=== PATIENT | male | born 1950 | race Hispanic/Latino ===

== ENCOUNTER 2017-12-22 14:52 | Observation (INO) | payer MEDICARE, OTHER ==
[2017-12-22] MEDS: Sodium Chloride 0.9% 1,000 ML IV SCH ×2 (16:33→19:24)
--- NOTE | 2017-12-22 16:57 | ED PDOC ---
Arrival/HPI - General Chief Complaint: Shortness Of Breath Time Seen by Provider: 12/22/17 15:28 Historian: Patient - History of Present Illness Narrative History of Present Illness (Text): 12/22/17 16:54 Patient is a 67 yo male, PMHx of diabetes, pancreatitis, presents to the Emergency Department complaining of three days of upper abdominal pain, gradual onset now constant. Pain radiates to chest. Pain worse after eating oatmeal today "feels like when I had pancreatitis". Patient denies pain with exertion. Denies acute leg pain or swelling. Denies vomiting or bloody stool. Denies shortness of breath or pleuritic discomfort. Time/Duration: < week Symptom Onset: Gradual Past Medical History - Cardiac Hx Hypertension: No - Endocrine/Metabolic Hx Diabetes Mellitus Type 2: Yes - Psychiatric Hx Substance Use: No - Surgical History Hx Appendectomy: Yes Hx Arthroscopy: Yes (L knee) Hx Tonsillectomy: Yes Other/Comment: Lasix sx B/L eyes. Back fusion - Anesthesia Hx Anesthesia: Yes Hx Anesthesia Reactions: No Hx Malignant Hyperthermia: No Family/Social History Family/Social History: Unknown Family HX Smoking Status: Former Smoker Hx Alcohol Use: No Hx Substance Use: No Allergies/Home Meds Allergies/Adverse Reactions: Allergies No Known Allergies Allergy (Verified 12/22/17 15:32) Review of Systems - Review of Systems Constitutional: absent: Fevers Eyes: absent: Vision Changes ENT: absent: Hearing Changes Respiratory: absent: SOB, Cough Cardiovascular: Chest Pain, ADHIKARI. absent: Palpitations, Edema, Calf Pain Gastrointestinal: Abdominal Pain, Nausea, Appetite Changes. absent: Constipation, Diarrhea Genitourinary Male: absent: Dysuria, Frequency, Hematuria Musculoskeletal: absent: Back Pain Skin: absent: Rash Neurological: absent: Headache, Dizziness, Focal Weakness, Gait Changes Hemo/Lymphatic: absent: Easy Bleeding Psychiatric: absent: Depression Physical Exam Vital Signs Reviewed: Yes Vital Signs Temp Pulse Resp BP Pulse Ox 12/22/17 15:33 18 12/22/17 14:53 98.8 F 75 18 139/86 98 Temperature: Afebrile Appearance: Positive for: Uncomfortable Pain Distress: Mild Mental Status: Positive for: Alert and Oriented X 3 - Systems Exam Head: Present: Atraumatic Pupils: Present: PERRL Extroacular Muscles: Present: EOMI Mouth: Present: Dry Pharnyx: No: ERYTHEMA Nose (Internal): Present: Normal Inspection, No Active Bleeding Neck: Present: Normal Range of Motion. No: Meningeal Signs Respiratory/Chest: Present: Clear to Auscultation. No: Respiratory Distress Cardiovascular: Present: Regular Rate and Rhythm, Murmurs Abdomen: Present: Tenderness (moderate epigastric pain, no rebound or guarding, no lower abdominal pain or masses), Other (no pulsatile masses). No: Peritoneal Signs, Rebound Rectal: No: Gross Blood Back: No: CVA Tenderness Upper Extremity: No: Cyanosis Lower Extremity: No: Edema Neurological: Present: Motor Func Grossly Intact, Normal Sensory Function Skin: Present: Warm Psychiatric: Present: Alert Medical Decision Making ED Course and Treatment: 12/22/17 16:57 Patient is diabetic. Denies past cardiac history or family hx of cad. Pain is palpable, although radiates to chest. No hypoxia or sob or diaphoresis. Initial EKG unremarkable. Will obtain labs, cardiac workup given risk factors. Denies alcohol abuse or new medications. Currently no Martinez's sign or peritoneal signs. Patient lipase elevated. On re-exam, pain persistent in epigastric region. No rebound or guarding. Symptoms NOT worse with exertion. No pleuritic pain. No hypoxia. Initial cardiac enzymes unremarkable. He has had no prior cardiac workup, given persistent pain that radiates to chest , will admit to telemetry for monitoring and serial cardiac enzymes as he is diabetic with HTN. He took aspirin prior to arrival. Strong gastrointestinal component to symptoms as well. Patient with possible pancreatitis, although will obtain ct abdomen/pelvis. Case d/w on-call physician Dr. Strange who accepts admission to his service. CT pending, endorsed to admitting team resident for follow-up. Patient informed of labs, treatment plan, agreeable to admission. - Lab Interpretations Lab Results: 12/22/17 16:30 12/22/17 16:30 Lab Results 12/22/17 18:00: Urine Color Yellow, Urine Appearance Sl cloudy, Urine pH 7.5, Ur Specific [place] 1.025, Urine Protein 100 H, Urine Glucose (UA) >=1000, Urine Ketones 15 H, Urine Blood Trace-intact H, Urine Nitrate Negative, Urine Bilirubin Negative, Urine Urobilinogen 0.2, Ur Leukocyte Esterase Negative, Urine RBC 2 - 5, Urine WBC 1 - 3, Ur Epithelial Cells 4 - 5, Urine Bacteria Few 12/22/17 16:30: Influenza Typ A,B (EIA) Negative for flu a/b 12/22/17 16:30: Sodium 139, Potassium 4.9, Chloride 99, Carbon Dioxide 27, Anion Gap 18, BUN 14, Creatinine 0.7 L, Est GFR ( Amer) > 60, Est GFR ( Non-Af Amer) > 60, Random Glucose 138 H, Calcium 10.1, Magnesium 2.1, Total Bilirubin 0.8, AST 31, ALT 37, Alkaline Phosphatase 79, Lactate Dehydrogenase 456, Total Creatine Kinase 85, Troponin I < 0.01, NT-Pro-B Natriuret Pep 108, Total Protein 7.7, Albumin 4.5, Globulin 3.3, Albumin/Globulin Ratio 1.4, Amylase 110, Lipase 435 H 12/22/17 16:30: PT 11.5, INR 1.01, APTT 34.8 12/22/17 16:30: WBC 9.3, RBC 5.66, Hgb 18.1 H*, Hct 52.8 H, MCV 93.3, MCH 32.0, MCHC 34.3, RDW 13.3, Plt Count 136, MPV 10.5, Gran % 79.4 H, Lymph % (Auto) 11.8 L, [place] % (Auto) 8.2 H, Eos % (Auto) 0.6 L, Baso % (Auto) 0.0, Gran # 7.38 H, Lymph # (Auto) 1.1 L, [place] # (Auto) 0.8 H, Eos # (Auto) 0.1, Baso # (Auto) 0.00 - RAD Interpretation Radiology Orders: 12/22/17 18:29 ABD PELVIS PO & IV CONTRAST [CT] Stat Thread Reeler: Radiologist - EKG Interpretation EKG Interpretation (Text): 12/22/17 16:57 EKG at 15:00 normal sinus rhythm raet of [address] elevations Interpreted by ED Physician: Yes Type: 12 lead EKG - Medication Orders Current Medication Orders: Enoxaparin Sodium (Lovenox) 40 mg SC DAILY JEN PRN Reason: Protocol Sodium Chloride (Sodium Chloride 0.9%) 1,000 mls @ 100 mls/hr IV .Q10H JEN Last Admin: 02/18/18 16:33 Dose: 100 mls/hr eMAR Start Stop Document 12/22/17 16:33 EQ (Rec: 12/22/17 16:33 EQ [id number]) Intravenous Solution Start Date 12/22/17 Start Time 16:33 Sodium Chloride (Sodium Chloride 0.9%) 1,000 mls @ 100 mls/hr IV .Q10H JEN Last Admin: 12/22/17 19:24 Dose: 100 mls/hr eMAR Start Stop Document 12/22/17 19:24 EQ (Rec: 12/22/17 19:24 EQ [id number]) Intravenous Solution Start Date 12/22/17 Start Time 19:24 Sodium Chloride (Sodium Chloride 0.9%) 1,000 mls @ 999 mls/hr IV .Q1H1M STA Stop: 12/22/17 20:33 Insulin Human Lispro (Humalog Low) 0 units SC ACHS JEN PRN Reason: Protocol Ondansetron HCl (Zofran Inj) 4 mg IVP Q4H PRN PRN Reason: Nausea/Vomiting Pantoprazole Sodium (Protonix Ec Tab) 40 mg PO 0600,1600 [facility] Discontinued Medications Acetaminophen (Tylenol 325mg Tab) 650 mg PO ONCE STA Stop: 12/22/17 16:46 Last Admin: 12/22/17 19:24 Dose: 650 mg MAR Pain/Vitals Document 12/22/17 19:24 EQ (Rec: 12/22/17 19:24 EQ [id number]) Pain Reassessment Is This A Pain ReAssessment? No Sleep Is patient sleeping during reassessment? No Presence of Pain Presence of Pain Yes Pain Scale Used Pain Scale Used Numeric Aspirin (Aspirin Chewable) 81 mg PO STAT STA Stop: 12/22/17 15:53 Last Admin: 12/22/17 16:33 Dose: Famotidine (Pepcid) 20 mg IVP STAT STA Stop: 12/22/17 15:53 Last Admin: 12/22/17 16:33 Dose: 20 mg IVP Administration Document 12/22/17 16:33 EQ (Rec: 12/22/17 16:33 EQ [id number]) Charges for Administration # of IVP Administrations 1 Disposition/Present on Arrival - Present on Arrival Any Indicators Present on Arrival: No History of DVT/PE: No History of Uncontrolled Diabetes: No Urinary Catheter: No History of Decub. Ulcer: No History Surgical Site Infection Following: None - Disposition Have Diagnosis and Disposition been Completed?: Yes Diagnosis: Chest pain, Abdominal pain Disposition: HOSPITALIZED Disposition Time: 18:00 Patient Plan: Admission, Observation, Telemetry Condition: FAIR
[2017-12-22 17:02] LABS: INR 1.01 (0.93-1.08); PARTIAL THROMBOPLASTIN TIME 34.8 Seconds (25.1-36.5); PROTHROMBIN TIME 11.5 SECONDS (9.4-12.5)
[2017-12-22 17:05] LABS: ALB/GLOB RATIO 1.4 (1.1-1.8); ALBUMIN 4.5 g/dL (3.0-4.8); ALT/SGPT 37 U/L (7-56); AST/SGOT 31 U/L (17-59); BLOOD UREA NITROGEN 14 mg/dL (7-21); CALCIUM 10.1 mg/dL (8.4-10.5); GFR AFRICAN-AMERICAN > 60; GFR NON-AFRICAN AMERICAN > 60; MAGNESIUM 2.1 mg/dL (1.7-2.2)
[2017-12-22 17:09] LABS: EOS # 0.1 (0.0-0.7); EOS % 0.6 % (1.5-5.0); GRAN # 7.38 (1.4-6.5); GRAN % 79.4 % (50.0-68.0); LYMPH # 1.1 (1.2-3.4); LYMPH % 11.8 % (22.0-35.0); MEAN CELL VOLUME 93.3 fl (80.0-105.0); MEAN CORPUSCULAR HGB CONC 34.3 g/dl (31.0-37.0); MEAN PLATELET VOLUME 10.5 fl (7.0-11.0); MONO # 0.8 (0.1-0.6); MONO % 8.2 % (1.0-6.0); RBC 5.66 10^6/uL (3.5-6.1); RED CELL DISTRIBUTION WIDTH 13.3 % (11.5-14.5); WHITE BLOOD COUNT 9.3 10^3/ul (4.5-11.0)
[2017-12-22 17:15] LABS: HEMOGLOBIN 18.1 g/dL (14.0-18.0)
[2017-12-22 17:34] LABS: AMYLASE 110 U/L (35-125); LIPASE 435 U/L (23-300)
[2017-12-22 17:54] LABS: TROPONIN I < 0.01 ng/mL
[2017-12-22 17:55] LABS: B-TYPE NATRIURETIC PEPTIDE 108 pg/mL (0-450)
[2017-12-22 18:16] LABS: PH,URINE 7.5 (4.7-8.0); URINE BILIRUBIN NEGATIVE (NEGATIVE); URINE BLOOD TRACE-INTACT (NEGATIVE); URINE GLUCOSE (UA) >=1000 mg/dL (NEGATIVE); URINE LEUKOCYTE ESTERASE NEGATIVE Leu/uL (NEGATIVE); URINE NITRATE NEGATIVE (NEGATIVE); URINE PROTEIN 100 mg/dL (<30 mg/dL); URINE UROBILINOGEN 0.2 E.U./dL (<1 E.U./dL)
[2017-12-22 18:27] LABS: URINE APPEARANCE SL CLOUDY (CLEAR); URINE COLOR YELLOW (YELLOW)
[2017-12-22 18:29] LABS: URINE BACTERIA FEW (NEG)
[2017-12-22] MEDS ORDERED: Iohexol 240 (50 ml) ONE (18:43)
--- NOTE | 2017-12-22 19:27 | CP.PCM.HP ---
History of Present Illness - History of Present Illness History of Present Illness: 67 year old male with past medical history of HTN, pancreatitis and diabetes mellitus presents with abdominal pain for 3 days. Patient described the pain as substernal and intermittent. Pain is rated a 4/10 and nonradiating. Patient states pain was made better by eating. Patient did not take any medication for his pain. Patient states pain is similar to the pain he had with his last bout of pancreatitis. Patient denies shortness of breath, nausea, vomiting, diarrhea , constipation, fever, chills. Past medical history: HTN, Pancreatitis and Diabetes mellitus Surgical history: Tonsillectomy, Appendectomy, Back surgery Family history: Diabetes Social history: Former smoker, 20 years x 1 ppd. Denies alcohol or illicit drug use. Allergies: NKDA Medications: Reviewed, as per MAR Present on Admission - Present on Admission Any Indicators Present on Admission: No Review of Systems - Review of Systems Review of Systems: 12 point ROS as per HPI, otherwise negative. Past Patient History - Past Social History Smoking Status: Former Smoker - CARDIAC Hx Hypertension: No - ENDOCRINE/METABOLIC Hx Diabetes Mellitus Type 2: Yes - PSYCHIATRIC Hx Substance Use: No - SURGICAL HISTORY Hx Appendectomy: Yes Hx Arthroscopy: Yes (L knee) Hx Tonsillectomy: Yes Other/Comment: Lasix sx B/L eyes. Back fusion - ANESTHESIA Hx Anesthesia: Yes Hx Anesthesia Reactions: No Hx Malignant Hyperthermia: No Meds Allergies/Adverse Reactions: Allergies Allergy/AdvReac Type Severity Reaction Status Date / Time No Known Allergies Allergy Verified 12/22/17 15:32 Physical Exam - Constitutional Appears: Non-toxic, No Acute Distress - Head Exam Head Exam: ATRAUMATIC, NORMAL INSPECTION, NORMOCEPHALIC - Eye Exam Eye Exam: EOMI, Normal appearance - ENT Exam ENT Exam: Mucous Membranes Moist, Normal Exam - Respiratory Exam Respiratory Exam: Clear to Auscultation Bilateral, NORMAL BREATHING PATTERN - Cardiovascular Exam Cardiovascular Exam: RRR, +S1, +S2 - GI/Abdominal Exam GI & Abdominal Exam: Normal Bowel Sounds, Soft, Tenderness (Epigatric). absent : Distended, Rebound - Extremities Exam Extremities exam: Negative for: calf tenderness, pedal edema - Neurological Exam Neurological exam: Alert, CN II-XII Intact, Oriented x3 - Psychiatric Exam Psychiatric exam: Normal Affect, Normal Mood - Skin Skin Exam: Intact, Normal Color, Warm Results - Vital Signs Recent Vital Signs: Last Vital Signs Temp 98.8 F 12/22/17 14:53 Pulse 75 12/22/17 14:53 Resp 18 12/22/17 15:33 BP 139/86 12/22/17 14:53 Pulse Ox 98 12/22/17 14:53 - Labs Result Diagrams: 12/22/17 16:30 12/22/17 16:30 Assessment & Plan - Assessment and Plan (Free Text) Plan: 67 year old male with past medical history of HTN, pancreatitis and diabetes mellitus presents with pancreatitis and chest pain. Patient will be given of IVF and have troponins trended at this time. Will continue to monitor closely. Pancreatitis NS @ 100 GI consulted, Dr. Jolene Almendarez for abdominal pain Pending CT abdomen/pelvis Liver profile CPK added Chest pain r/o ACS Trend tropinins Echo pending Lipid panel Magnesium, Phosphorus DM NS @ 100 Insulin sliding scale HgA1c Thyroid panel Prophylaxis Lovenox Protonix Teresa, PGY-2
[2017-12-22] MEDS ORDERED: Sodium Chloride 0.9% 1,000 ML IV STA (19:33)
[2017-12-22 20:14] LABS: T4 7.9 ug/dL (5.5-11.0)
[2017-12-22] MEDS ORDERED: Iohexol 350 MG/100 ML VIAL ONE (20:42)
[2017-12-22 20:51] LABS: TROPONIN I < 0.01 ng/mL
[2017-12-22 20:54] LABS: BARBITURATES, UR NEGATIVE (NEGATIVE); BENZODIAZEPINES, UR NEGATIVE (NEGATIVE); OPIATES, UR NEGATIVE (NEGATIVE); PHENCYCLIDINE, UR NEGATIVE (NEGATIVE)
--- NOTE | 2017-12-22 22:06 | CT ---
EXAM: CT Abdomen and Pelvis With Intravenous Contrast CLINICAL HISTORY: 67 years old, male; Pain; Abdominal pain; Prior surgery; Surgery type: Appendectomy; Additional info: R/O colitis TECHNIQUE: Axial computed tomography images of the abdomen and pelvis with intravenous contrast. All CT scans at this facility use one or more dose reduction techniques, viz.: automated exposure control; ma/kV adjustment per patient size (including targeted exams where dose is matched to indication; i.e. head); or iterative reconstruction technique. Coronal and sagittal reformatted images were created and reviewed. CONTRAST: 91 mL of OMNI 350 administered intravenously. COMPARISON: No relevant prior studies available. FINDINGS: Lower thorax: Minimal atelectasis. ABDOMEN: Liver: Fatty infiltration. Gallbladder and bile ducts: No calcified stones. No ductal dilation. Pancreas: Equivocal minimal stranding about head of pancreas. No ductal dilation. Spleen: Mild splenomegaly, AP dimension. Adrenals: No mass. Kidneys and ureters: Mild stranding about kidneys, nonspecific. No hydronephrosis. Normal caliber ureters. 0.4 x 0.4 x 0.3 cm calculus within LEFT distal ureter. Stomach and bowel: No definite mural thickening. No obstruction. Appendix: Appendectomy. PELVIS: Bladder: Unremarkable. Reproductive: Mildly enlarged prostate. ABDOMEN and PELVIS: Intraperitoneal space: No significant fluid collection. No free air. Bones/joints: Postsurgical changes of lumbar spine. Mild degenerative changes of hips and spine. No acute fracture. Soft tissues: Unremarkable. Vasculature: Mild atherosclerotic disease. No aneurysm. Lymph nodes: Mildly enlarged short axis lymph node within khadra hepatis. IMPRESSION: 1. LEFT distal ureteral calculus without significant hydroureteronephrosis. 2. Equivocal stranding about pancreas. Correlate with amylase/lipase levels to exclude pancreatitis. 3. Mild lymphadenopathy within khadra hepatis. Followup as clinically warranted. 4. Perinephric stranding, nonspecific. Correlate with urinalysis to exclude infection. 5. Incidental/non-acute findings are described above.
[2017-12-22] MEDS: Insulin Lispro (humaLOG) LOW Coverage SC SCH (22:40)
[2017-12-22 22:52] VITALS: BMI 37.8
[2017-12-22 23:14] LABS: TROPONIN I < 0.01 ng/mL
[2017-12-23] MEDS: Sodium Chloride 0.9% 1,000 ML IV SCH ×4 (02:30→16:42)
[2017-12-23 03:19] LABS: TROPONIN I < 0.01 ng/mL
[2017-12-23] MEDS: Pantoprazole 40 mg EC Tab PO SCH ×2 (06:47→17:34)
[2017-12-23 07:37] LABS: EOS # 0.1 (0.0-0.7); EOS % 1.3 % (1.5-5.0); GRAN # 6.3 (1.4-6.5); HEMOGLOBIN 17.7 g/dL (14.0-18.0); LYMPH # 1.4 (1.2-3.4); LYMPH % 15.8 % (22.0-35.0); MEAN CELL VOLUME 93.3 fl (80.0-105.0); MEAN CORPUSCULAR HEMOGLOBIN 31.9 pg (25.0-35.0); MEAN CORPUSCULAR HGB CONC 34.2 g/dl (31.0-37.0); MEAN PLATELET VOLUME 10.2 fl (7.0-11.0); MONO # 0.9 (0.1-0.6); MONO % 9.9 % (1.0-6.0); RBC 5.55 10^6/uL (3.5-6.1); RED CELL DISTRIBUTION WIDTH 13.4 % (11.5-14.5); WHITE BLOOD COUNT 8.6 10^3/ul (4.5-11.0)
[2017-12-23 08:28] LABS: LDL CHOLESTEROL 57 mg/dL (0-129)
[2017-12-23 08:30] LABS: ALB/GLOB RATIO 1.3 (1.1-1.8); ALBUMIN 4.1 g/dL (3.0-4.8); ALT/SGPT 34 U/L (7-56); AST/SGOT 22 U/L (17-59); BILIRUBIN,DIRECT 0.3 mg/dL (0.0-0.4); BLOOD UREA NITROGEN 12 mg/dL (7-21); CALCIUM 9.5 mg/dL (8.4-10.5); GFR AFRICAN-AMERICAN > 60; GFR NON-AFRICAN AMERICAN > 60; HDL CHOLESTEROL 34 mg/dL (29-60); MAGNESIUM 2.1 mg/dL (1.7-2.2)
[2017-12-23] MEDS: Insulin Lispro (humaLOG) LOW Coverage SC SCH ×4 (08:35→21:47)
--- NOTE | 2017-12-23 09:15 | RAD ---
HISTORY: chest pain COMPARISON: No prior. FINDINGS: LUNGS: No active pulmonary disease. PLEURA: No significant pleural effusion identified, no pneumothorax apparent. CARDIOVASCULAR: Normal. OSSEOUS STRUCTURES: No significant abnormalities. VISUALIZED UPPER ABDOMEN: Normal. OTHER FINDINGS: None. IMPRESSION: No active disease.
--- NOTE | 2017-12-23 09:54 | CARD ---
APPROVED REPORT EKG Measurement Heart [id number] <Conclusion> Normal sinus rhythm Normal ECG
[2017-12-23] MEDS: Enoxaparin 40 mg Syringe SC SCH (10:58)
[2017-12-23 12:53] VITALS: RESP 20
--- NOTE | 2017-12-23 14:19 | US ---
HISTORY: epigastric pain COMPARISON: None. TECHNIQUE: Sonographic evaluation of the right upper quadrant of the abdomen. FINDINGS: LIVER: Measures 20 cm in length. Increased echogenicity of the liver parenchyma. There is a hypoechoic area in the left lobe of the liver measuring 3.2 x 2.2 x 5.7 cm. This could represent an area of focal sparing of fatty infiltration. A neoplastic lesion is possible but less likely GALLBLADDER: Unremarkable. No gallstones. COMMON BILE DUCT: Measures 4.5 mm. No stones. No dilatation. PANCREAS: Unremarkable as visualized. No mass. No ductal dilatation. RIGHT KIDNEY: Measures 12.5 x 5.5 x 7.5 cm in length. Normal echogenicity. No calculus, mass, or hydronephrosis. AORTA: No aneurysmal dilatation. IVC: Unremarkable. OTHER FINDINGS: None . IMPRESSION: Fatty infiltration of the liver. There is a hypoechoic area in the left lobe of the liver measuring 3.2 x 2.2 x 5.7 cm. This could represent an area of focal sparing of fatty infiltration. A neoplastic lesion is possible but less likely
--- NOTE | 2017-12-23 15:11 | CARD ---
APPROVED REPORT EXAM: Two-dimensional and M-mode echocardiogram with Doppler and color Doppler. INDICATION 2D DIMENSIONS IVSd1.4 (0.7-1.1cm)LVDd3.9 (3.9-5.9cm) PWd1.5 (0.7-1.1cm)LVDs2.8 (2.5-4.0cm) FS (%) 29.1 %LVEF (%)56.5 (>50%) M-Mode DIMENSIONS Left Atrium (MM)3.10 (2.5-4.0cm)Aortic Root4.00 (2.2-3.7cm) Aortic Cusp Exc.1.90 (1.5-2.0cm) Aortic Valve AoV Peak Xiprwboa456.0cm/Roopa Peak GR.5mmHg Mitral Valve MV E Knbvqzgs87.7cm/sMV A Vmozmayy76.8cm/sE/A ratio0.7 TDI Lateral E' Peak V6.73cm/sMedial E' Peak V7.02cm/sE/Lateral E'9.6 E/Medial E'9.2 Tricuspid Valve TR Peak [id number]/sRAP [id number] Peak Gr.21mmHg [id number] LEFT VENTRICLE The left ventricle is normal size. There is mild concentric left ventricular hypertrophy. The left ventricular function is normal. The left ventricular ejection fraction is within the normal range. There is normal LV segmental wall motion. Transmitral Doppler flow pattern is Grade I-abnormal relaxation pattern. RIGHT VENTRICLE The right ventricle is normal size. There is normal right ventricular wall thickness. The right ventricular systolic function is normal. ATRIA The left atrium size is normal. The right atrium size is normal. AORTIC VALVE The aortic valve is moderately thickened. No aortic regurgitation is present. There is no aortic valvular stenosis. MITRAL VALVE The mitral valve is mildly thickened. There is no mitral valve regurgitation noted. There is no mitral valve stenosis. TRICUSPID VALVE The tricuspid valve is normal in structure. GREAT VESSELS The aortic root is normal in size. The IVC is normal in size and collapses >50% with inspiration. PERICARDIAL EFFUSION There is a trace loculated anterior pericardial effusion. <Conclusion> The left ventricle is normal size. There is mild concentric left ventricular hypertrophy. The left ventricular function is normal. The left ventricular ejection fraction is within the normal range. There is normal LV segmental wall motion. Transmitral Doppler flow pattern is Grade I-abnormal relaxation pattern.
--- NOTE | 2017-12-23 16:28 | US ---
HISTORY: Leg pain and swelling. Evaluate for DVT PHYSICIAN(S): Dustin Luu MD. TECHNIQUE: Duplex sonography and color-flow Doppler with graded compression were used to evaluate the deep venous systems of both lower extremities. The exam is limited by body habitus and edema FINDINGS: The visualized deep venous systems of both lower extremities are sonographically normal and compressible. Normal wave forms and augmentation are seen. There is no sonographic evidence for deep venous thrombosis in the visualized segments of both lower extremities. IMPRESSION: No sonographic evidence for deep venous thrombosis in the visualized segments of both lower extremities.
--- NOTE | 2017-12-23 16:28 | US ---
PROCEDURE: Lower extremity BERNARDINO exam HISTORY: Peripheral vascular disease with pain and claudication. Previous smoker. Diabetes. PHYSICIAN(S): Dustin Luu MD. FINDINGS: The resting BERNARDINO's are normal: right, 1.17and left, 1.20. The brachial systolic pressures are symmetric. The high thigh pressures and waveforms are relatively normal. The calf PVR waveforms augment normally. No significant gradients are noted across the thighs. The ankle and metatarsal waveforms are relatively normal and symmetric. No significant pressure gradients are noted across the lower legs. IMPRESSION: 1. Normal BERNARDINO and PVR examination at rest.
[2017-12-23 16:47] LABS: HEPATITIS B SURFACE AG Negative (NEGATIVE)
[2017-12-23 16:53] LABS: HEPATITIS A IGM NEGATIVE (NEGATIVE); HEPATITIS B CORE AB NEGATIVE (NEGATIVE)
[2017-12-23 17:05] LABS: HEPATITIS C ANTIBODY NEGATIVE (NEGATIVE)
--- NOTE | 2017-12-23 21:24 | CARD ---
APPROVED REPORT EKG Measurement Heart [id number] <Conclusion> Normal sinus rhythm with sinus arrhythmia Normal ECG
--- NOTE | 2017-12-23 22:53 | CON ---
DATE: 12/23/2017 CARDIOLOGY CONSULTATION HISTORY OF PRESENT ILLNESS: The patient is a 67-year-old male who presents with epigastric discomfort, which is similar to his previous episode of pancreatitis. The etiology of his pancreatitis is unknown. The patient has no previous cardiac history. No previous myocardial infarction. There is no angina or dyspnea. The patient's cardiac risk factors includes diabetes mellitus, obesity, as well as a remote family history for CAD. SOCIAL HISTORY: The patient is a former smoker. REVIEW OF SYSTEMS: A 14-point review of systems is reviewed in detail. No cardiac symptomatology is noted. The patient does not drink alcohol. PHYSICAL EXAMINATION: VITAL SIGNS: Blood pressure is 136/81, heart rate is in the 60s. NECK: Negative JVD. LUNGS: Without rales. HEART: S1, S2. EXTREMITIES: Without edema. LABORATORY DATA: Revealed an elevated amylase. Ttroponins are negative x2. The glucose is 133. Hemoglobin is 17.7. IMPRESSION: 1. Epigastric discomfort, likely due to pancreatitis. 2. Diabetes mellitus. 3. No evidence for acute coronary syndrome. 4. Obesity. 5. Former smoker. Given these findings, we will discontinue telemetry today. There is no evidence for acute coronary syndrome. Given his cardiac risk factors, the patient would benefit from a stress test to screen for coronary disease. We will do this as an outpatient once his pancreatitis has resolved. Dustin Yan MD
--- NOTE | 2017-12-23 22:55 | CON ---
DATE: 12/23/2017 GASTROLOGY CONSULTATION REQUESTING PHYSICIAN: Nic Strange MD. REASON FOR CONSULT: I have been asked to see this 67-year-old male who comes to the hospital with 3 days of epigastric and chest pain. The patient denies any nausea and vomiting. The patient states that the pain has essentially resolved over the last 12 hours. The patient apparently was admitted to the hospital approximately 6 years ago for a similar-type pain and was told that he had pancreatitis. Routine blood work here in the hospital shows mildly elevated lipase at 435. His amylase was normal. AST, ALT, alk phos were all normal. CT scan of the abdomen and pelvis performed in the hospital showed some mild nonspecific stranding around the head of the pancreas. This was an equivocal finding. There was also some stranding around the kidneys with a left distal ureteral calculus without significant hydronephrosis. Again, the patient's abdominal pain has resolved. He denies any nausea, vomiting, fevers, chills or jaundice. PAST MEDICAL HISTORY: Notable for pancreatitis 7 years ago, etiology unknown; hypertension; diabetes mellitus. PAST SURGICAL HISTORY: Notable for appendectomy, tonsillectomy, back surgery. SOCIAL HISTORY: He is a former cigarette smoker, having quit several years ago. He smoked up to a pack of cigarettes per day for 20 years. He denies alcohol use. FAMILY HISTORY: Noncontributory. REVIEW OF SYSTEMS: Fourteen-point review of systems is notable for epigastric pain, chest pain. MEDICATIONS AT HOME: Unknown. PHYSICAL EXAMINATION: GENERAL: Obese male, lying in bed, in no acute distress. VITAL SIGNS: Reveal temperature of 97.4, blood pressure 136/81, heart rate of 66. HEENT: Reveal sclerae to be white. Conjunctivae pink. NECK: Supple. CHEST: Lungs are clear. HEART: Reveals regular rate and rhythm. ABDOMEN: Obese, soft, nontender. EXTREMITIES: Show 1+ pedal edema with chronic stasis changes of his pretibial area. LABORATORY DATA: Reveal on admission to the hospital amylase of 110, lipase of 435. AST, ALT, alk phos were all normal. His electrolytes this morning are normal with blood sugar of 133. CBC shows white blood cell count 8.6, hemoglobin 17.7. IMPRESSION: 1. A 67-year-old obese male with diabetes mellitus and hypertension with 3 days of abdominal pain with mildly elevated lipase and some equivocal stranding around the pancreas on CAT scan. There was some stranding around the kidneys also. I have personally reviewed the CAT scan and not convinced that there is stranding around the pancreas. There is no pancreatic mass. One most rule out biliary colic. 2. Diabetes mellitus. 3. Hypertension. RECOMMENDATIONS: We will request gallbladder ultrasound. If this is negative, the patient's diet can be advanced and can be discharged home with outpatient followup. Florian Fernández MD
--- NOTE | 2017-12-24 03:00 | PN ---
DATE: 12/23/2017 SUBJECTIVE: The patient was seen in room 377, bed one. The patient was seen and examined with the medical information specialist. Overnight nurse's notes were reviewed. The patient states that the symptoms of chest pain and abdominal pain have resolved significantly. PHYSICAL EXAMINATION: VITAL SIGNS: T-max 98.2. Telemetry shows sinus rhythm. Telemetry shows heart rate of 70, 76, 74, 84, 93; blood pressure 161/97, 146/79, 136/81, 146/96; respirations 20; O2 sat 98%. GENERAL: The patient is seen sitting up in the bed. HEENT: Head examination normocephalic, atraumatic. HEENT examination shows pink conjunctivae. Anicteric sclerae. No oropharyngeal lesion. No neck rigidity. CHEST: Kyphosis. LUNGS: Shows no rales, crackles or wheezing. CARDIOVASCULAR: S1, S2. Regular rhythm. Questionable soft systolic murmur, left sternal border, right second intercostal space, left second intercostal space. ABDOMEN: Soft. Positive bowel sounds. Positive right-sided appendicular scar area small reducible incisional hernia. No guarding. No rigidity. No rebound tenderness. Mild epigastric tenderness. No costovertebral angle tenderness. No hepatosplenomegaly palpated. GENITALIA: Male. RECTAL: Deferred. EXTREMITY: Shows chronic skin discoloration of the lower extremity with venous stasis stigmata of the both lower extremity. VASCULAR: Palpable pulses. NEUROLOGIC: The patient is alert, awake, oriented x3. Cranial nerves II through XII intact. Gait examination is independent. MUSCULOSKELETAL: Shows a body mass index of 39. DIAGNOSTICS: On 12/23/2017, WBC 8.6, hemoglobin and hematocrit 17.7 and 52, platelet 122. Granulocytes 73. Sodium 140, potassium 4.8, chloride 100, CO2 of 28, anion gap 17, BUN 12, creatinine 0.8, GFR greater than 60, glucose 133, hemoglobin A1c 7.9, lactic acid 1.4. LFTs are normal. Troponin 4 sets are negative, less than 0.01. Triglycerides 225, cholesterol 124, LDL 57, HDL 34. Fingerstick blood sugar 127, 115, 157. Urine drug screen positive for cannabinoids. Hepatitis A, B, C serologies and influenza type negative. The patient's ultrasound of the gallbladder was done, which shows fatty liver with an area of focal sparing of fatty infiltration. The patient had a venous Doppler and arterial Doppler of the lower extremities done, which was negative with normal ankle-brachial indices and peripheral vascular resistance. Echocardiogram shows ejection fraction of 56.5%. Right ventricular systolic pressure of 31. Concentric left ventricular hypertrophy. Grade 1 abnormal relaxation pattern noted. EKG from 12/23/2017 was reviewed, shows sinus rhythm, questionable left axis deviation. The patient was seen by baker helper. The patient was seen by warehouse incentive selector. Their recommendation was noted. Gastroenterology and Cardiology recommendations noted. IMPRESSION AND PLAN: 1. Chest pain, etiology undetermined. 2. Abdominal pain, etiology undetermined. 3. Hypertension. 4. Transient tachycardia. 5. Obesity with elevated body mass index of 39. 6. Erythrocytosis with granulocytosis. 7. Noninsulin-requiring diabetes mellitus with hyperglycemia and hemoglobin A1c of 7.9. 8. Hypertriglyceridemia. 9. Questionable pancreatitis with elevated lipase of 435, less likely. 10. History of sleep apnea. 11. Hypertension. 12. Obesity. 13. Erythrocytosis with granulocytosis. 14. Hypertriglyceridemia. 15. Questionable pancreatitis with elevated lipase of 435, less likely. 16. Bilateral lower extremity venous stasis superficial ulceration. 17. Left axis deviation. 18. Questionable gastritis. 19. Obesity. 20. History of appendectomy. 21. Former nicotine dependence. 22. Hepatic increased echogenicity consistent with fatty infiltration of the liver and hepatic steatosis with hypoechoic area of the left lobe of the liver with focal sparing of fatty infiltration, etiology undetermined. 23. Left ventricular ejection fraction of 56%. 24. Mild concentric left ventricular hypertrophy and hypertensive cardiovascular disease. 25. Grade 1 abnormal relaxation pattern. 26. Moderately thickened aortic valve. 27. Mildly thickened mitral valve. 28. Hepatic steatosis. 29. Pancreatic head equivocal stranding. 30. Mild splenomegaly. 31. Mild nonspecific perinephric stranding. 32. Nonobstructing left distal ureter calculus. 33. Appendectomy. 34. Prostatomegaly. 35. Lumbar spine laminectomy and surgical scar with fusion. 36. 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 37. Ramses hepatis lymphadenopathy. 38. History of pancreatitis. 39. History of hypertension, history of diabetes. 40. Obesity. 41. History of active marijuana use. 42. History of skin tattooing. 43. History of type 2 diabetes mellitus. 44. History of appendectomy. 45. History of tonsillectomy. 46. History of left knee arthroscopy. 47. History of regular marijuana use. 48. History of sleep apnea. 49. History of hemorrhoidectomy and history of lumbar spine fusion surgery and laminectomy. At present, the patient will be considered for discharge soon, possibly within the next 24 hours. The patient's current medications: Aspirin 81 mg daily, Lovenox 40 mg subcu daily, Protonix 40 mg twice a day, IV fluid 0.9 normal saline at 100 mL an hour. Tylenol 650 q. 4 p.r.n., Zofran 4 mg IV q. 4 p.r.n. The patient's IV fluid will be discontinued as the patient's blood pressure is elevated. The patient is on Humalog low-dose sliding scale coverage. The patient has been advanced to altered GI hepatic diet. The patient has been ordered out of bed, KOURTNEY stockings, SCDs, physical therapy, occupational therapy. The patient was seen by physical therapist. The patient's current medications noted. The patient has been ordered repeat amylase, lipase, CMP, LFT, magnesium, phosphorus, CBC in a.m. The patient's case referred for TCU evaluation. At present, the patient's further management will be dependent upon the patient's clinical condition, hemodynamic status and as per the patient response to therapeutic intervention, as per the patient's diagnostic test results and as per recommendation by all the physician involved in the care of the patient. Dictated and electronically signed, not read. Nic Strange MD
[2017-12-24] MEDS: Sodium Chloride 0.9% 1,000 ML IV SCH (05:52)
[2017-12-24] MEDS: Pantoprazole 40 mg EC Tab PO SCH (05:52)
[2017-12-24 06:38] VITALS: PULSE 72; TEMP 97.4; O2SAT 99
--- NOTE | 2017-12-24 07:30 | HP ---
ADDENDUM The patient was seen and examined. The patient's vital signs, diagnostic data, all reports reviewed. Please refer to the detailed history and physical examination done by the medical staff manager. IMPRESSION AND PLAN 1. Chest pressure, heaviness and chest pain, etiology undetermined. 2. Upper abdominal pain, etiology undetermined. 3. Hypertension. 4. Dyslipidemia. 5. Non-insulin requiring diabetes mellitus. 6. Diabetic neuropathy. 7. Erythrocytosis. 8. Granulocytosis. 9. Hyperglycemia. 10. Questionable pancreatitis with mildly elevated lipase with abdominal pain. 11. Proteinuria, ketonuria,microscopic hematuria, bacteriuria. 12. History of regular marijuana use with urine drug screen positive for cannabinoids. 13. Basilar atelectasis. 14. Fatty infiltration of the liver with hepatic steatosis. 15. Mild splenomegaly. 16. Nonspecific perinephric stranding. 17. Nonobstructive left distal ureter calculus. 18. Status post appendectomy. 19. Prostatomegaly 20 Questionable supra incisional hernia. 21. Degenerative joint disease of the lumbar spine. 22. Degenerative joint disease of the hip. 23. Ramses hepatis lymphadenopathy. 24. Peripancreatic head stranding, nonspecific 25. Obesity with elevated body mass index of 39. 26. Bilateral lower extremity chronic venous insufficiency, superficial ulceration. 27. Left knee arthroscopic surgery. 28. History of lumbar spine laminectomy and lumbar spine fusion. 29. History of tonsillectomy. 30. Bilateral LASIK surgery. 31. History of sleep apnea. 32. History of hemorrhoidectomy. 33. History of nicotine dependence in the past. PLAN: At this time, the patient is to be placed on telemetry with Cardiology consultation, Gastroenterology consultation, serial labs, serial cardiac enzymes. The patient has been ordered flow cytometry. The patient has been ordered aspirin 81 mg p.o. daily. The patient has been ordered Humalog low-dose sliding scale coverage, Lovenox 40 mg subcu daily, Protonix 40 mg daily. The patient is on IV fluid 0.9 normal saline at 100 mL an hour, Tylenol 650 mg q. 4 p.r.n., Zofran 4 mg IV q. 4 p.r.n. Repeat EKG ordered. The patient has been ordered fingerstick blood sugar, out of bed, KOURTNEY stockings, SCDs, physical therapy, occupational therapy. In addition, I have also requested Cardiology, Gastroenterology and Podiatry consultation. The patient was also counseled about cessation of marijuana use. The patient has been ordered arterial venous Doppler of the lower extremity and ultrasound of the gallbladder. The patient has been ordered echocardiogram, repeat EKG. The patient has been ordered echo with Doppler. At present, the patient was seen and examined. Please refer to the detailed history and physical examination by the medical staff manager for further details. Dictated and electronically signed, not read. Nic Strange MD
[2017-12-24 07:36] LABS: EOS # 0.2 (0.0-0.7); EOS % 2.1 % (1.5-5.0); GRAN # 6.06 (1.4-6.5); GRAN % 71.4 % (50.0-68.0); HEMOGLOBIN 17.3 g/dL (14.0-18.0); LYMPH # 1.4 (1.2-3.4); LYMPH % 16.5 % (22.0-35.0); MEAN CELL VOLUME 93.2 fl (80.0-105.0); MEAN CORPUSCULAR HEMOGLOBIN 32.5 pg (25.0-35.0); MEAN CORPUSCULAR HGB CONC 34.9 g/dl (31.0-37.0); MEAN PLATELET VOLUME 10.1 fl (7.0-11.0); MONO # 0.9 (0.1-0.6); RBC 5.32 10^6/uL (3.5-6.1); RED CELL DISTRIBUTION WIDTH 13.5 % (11.5-14.5); WHITE BLOOD COUNT 8.5 10^3/ul (4.5-11.0)
[2017-12-24 08:13] LABS: ALB/GLOB RATIO 1.4 (1.1-1.8); ALT/SGPT 30 U/L (7-56); AMYLASE 84 U/L (35-125); AST/SGOT 23 U/L (17-59); BILIRUBIN,DIRECT 0.4 mg/dL (0.0-0.4); BLOOD UREA NITROGEN 16 mg/dL (7-21); CALCIUM 9.1 mg/dL (8.4-10.5); GFR AFRICAN-AMERICAN > 60; GFR NON-AFRICAN AMERICAN > 60; LIPASE 309 U/L (23-300)
[2017-12-24] MEDS: Insulin Lispro (humaLOG) LOW Coverage SC SCH (08:17)
[2017-12-24] MEDS: Enoxaparin 40 mg Syringe SC SCH (10:27)
[2017-12-24 10:28] VITALS: BP 134/89
--- NOTE | 2017-12-24 11:00 | CP.PCM.CON ---
History of Present Illness - History of Present Illness History of Present Illness: Podiatry Consult Note - Dr. Felix 67 year old male patient PMHx HTN, DM, pancreatitis seen and evaluated for venous insufficiency to bilateral LE. Patient hemodynamically stable and NAD. Patient complaining of chronic skin changes and swelling to bilateral LE. Admits to wearing compression stockings b/l though infrequently. Patient states he sees an outside sail cutter every few months for routine diabetic care. No pain to bilateral LE currently. Denies N/V/F/D/C/SOB. Review of Systems - Review of Systems All systems: reviewed and no additional remarkable complaints except (as per HPI ) Past Patient History - Past Social History Smoking Status: Former Smoker - CARDIAC Hx Hypertension: No - PULMONARY Hx Sleep Apnea: Yes - ENDOCRINE/METABOLIC Hx Diabetes Mellitus Type 2: Yes - MUSCULOSKELETAL/RHEUMATOLOGICAL Hx Falls: No - PSYCHIATRIC Hx Substance Use: Yes (marijuna) - SURGICAL HISTORY Hx Surgeries: Yes (hemmeroidectomy) Hx Appendectomy: Yes Other/Comment: Lasix sx B/L eyes. Back fusion - ANESTHESIA Hx Anesthesia: Yes Hx Anesthesia Reactions: No Hx Malignant Hyperthermia: No Meds Home Medications: Home Medication List Medication Instructions Recorded Confirmed Type Aspirin [Ecotrin] 81 mg PO DAILY #90 tabec 12/23/17 Rx Pantoprazole [Protonix EC Tab] 40 mg PO 0600,1600 #30 ect 12/23/17 Rx Allergies/Adverse Reactions: Allergies Allergy/AdvReac Type Severity Reaction Status Date / Time No Known Allergies Allergy Verified 12/22/17 15:32 - Medications Medications: Current Medications Acetaminophen (Tylenol 325mg Tab) 650 mg PO Q4H PRN PRN Reason: Pain, Mild (1-3) Last Admin: 12/22/17 22:59 Dose: 650 mg Amitriptyline HCl (Elavil) 10 mg PO HS [facility] Last Admin: 12/24/17 00:12 Dose: 10 mg Aspirin (Ecotrin) 81 mg PO DAILY [facility] Last Admin: 12/24/17 10:26 Dose: 81 mg Atorvastatin Calcium (Lipitor) 20 mg PO DAILY [facility] Last Admin: 12/24/17 10:27 Dose: 20 mg Enoxaparin Sodium (Lovenox) 40 mg SC DAILY [facility] PRN Reason: Protocol Last Admin: 12/24/17 10:27 Dose: 40 mg Fluoxetine HCl (Prozac) 40 mg PO DAILY [facility] Last Admin: 12/24/17 10:25 Dose: 40 mg Insulin Human Lispro (Humalog Low) 0 units SC ACHS [facility] PRN Reason: Protocol Last Admin: 12/24/17 08:17 Dose: Not Given Lisinopril (Zestril) 20 mg PO DAILY [facility] Last Admin: 12/24/17 10:26 Dose: 20 mg Ondansetron HCl (Zofran Inj) 4 mg IVP Q4H PRN PRN Reason: Nausea/Vomiting Pantoprazole Sodium (Protonix Ec Tab) 40 mg PO 0600,1600 [facility] Last Admin: 12/24/17 05:52 Dose: 40 mg Physical Exam - Constitutional Appears: Well, Non-toxic, No Acute Distress - Extremities Exam Additional comments: VASC: DP and PT pulses palpable 2/4 b/l. CFT <3 seconds to all digits b/l. Temperature gradient cool to cool from proximal to distal b/l. +1 pitting edema noted to bialteral LE. NEURO: Protective and epicritic sensation diminished. DERM: No open lesions noted. Bluish hyperpigmentation noted circumfirentially around leg b/l extending distally into digits. Xerosis and erythema noted in a moccasin distribution to both feet, R>L. ORTHO: No pain on palpation. Muscle strength 5/5 for all dorsiflexors, plantarflexors, inverters, and everters b/l. - Neurological Exam Neurological exam: Alert, Oriented x3 - Psychiatric Exam Psychiatric exam: Normal Affect, Normal Mood Results - Vital Signs Recent Vital Signs: Last Vital Signs Temp 97.4 F L 12/24/17 06:00 Pulse 72 12/24/17 10:26 Resp 20 12/24/17 06:00 BP 134/89 12/24/17 10:26 Pulse Ox 99 12/24/17 06:00 - Labs Result Diagrams: 12/24/17 07:00 12/24/17 07:00 Labs: Laboratory Results - last 24 hr 12/22/17 12/23/17 12/23/17 19:35 07:00 11:29 WBC RBC Hgb Hct MCV MCH MCHC RDW Plt Count MPV Gran % Lymph % (Auto) [place] % (Auto) Eos % (Auto) Baso % (Auto) Gran # Lymph # (Auto) [place] # (Auto) Eos # (Auto) Baso # (Auto) Sodium Potassium Chloride Carbon Dioxide Anion Gap BUN Creatinine Est GFR ( Amer) Est GFR (Non-Af Amer) POC Glucose (mg/dL) 115 H Random Glucose Hemoglobin A1c 7.9 H Calcium Phosphorus Magnesium Total Bilirubin Direct Bilirubin AST ALT Alkaline Phosphatase Total Protein Albumin Globulin Albumin/Globulin Ratio Amylase Lipase Free T3 pg/mL 3.24 Hepatitis A IgM Ab Hep Bs Antigen Hep B Core IgM Ab Hepatitis C Antibody HIV 1&2 Ag/Ab, 4th Gen 12/23/17 12/23/17 12/23/17 12:10 12:10 16:29 WBC RBC Hgb Hct MCV MCH MCHC RDW Plt Count MPV Gran % Lymph % (Auto) [place] % (Auto) Eos % (Auto) Baso % (Auto) Gran # Lymph # (Auto) [place] # (Auto) Eos # (Auto) Baso # (Auto) Sodium Potassium Chloride Carbon Dioxide Anion Gap BUN Creatinine Est GFR ( Amer) Est GFR (Non-Af Amer) POC Glucose (mg/dL) 157 H Random Glucose Hemoglobin A1c Calcium Phosphorus Magnesium Total Bilirubin Direct Bilirubin AST ALT Alkaline Phosphatase Total Protein Albumin Globulin Albumin/Globulin Ratio Amylase Lipase Free T3 pg/mL Hepatitis A IgM Ab Negative Hep Bs Antigen Negative Hep B Core IgM Ab Negative Hepatitis C Antibody Negative HIV 1&2 Ag/Ab, 4th Gen Nonreactive 12/23/17 12/24/17 12/24/17 21:32 07:00 07:00 WBC 8.5 RBC 5.32 Hgb 17.3 Hct 49.6 MCV 93.2 MCH 32.5 MCHC 34.9 RDW 13.5 Plt Count 125 MPV 10.1 Gran % 71.4 H Lymph % (Auto) 16.5 L [place] % (Auto) 10.0 H Eos % (Auto) 2.1 Baso % (Auto) 0.0 Gran # 6.06 Lymph # (Auto) 1.4 [place] # (Auto) 0.9 H Eos # (Auto) 0.2 Baso # (Auto) 0.00 Sodium 139 Potassium 4.4 Chloride 101 Carbon Dioxide 25 Anion Gap 18 BUN 16 Creatinine 0.8 Est GFR ( Amer) > 60 Est GFR (Non-Af Amer) > 60 POC Glucose (mg/dL) 106 Random Glucose 146 H Hemoglobin A1c Calcium 9.1 Phosphorus 3.8 Magnesium 2.0 Total Bilirubin 0.9 Direct Bilirubin 0.4 AST 23 ALT 30 Alkaline Phosphatase 75 Total Protein 6.9 Albumin 4.0 Globulin 2.9 Albumin/Globulin Ratio 1.4 Amylase 84 Lipase 309 H Free T3 pg/mL Hepatitis A IgM Ab Hep Bs Antigen Hep B Core IgM Ab Hepatitis C Antibody HIV 1&2 Ag/Ab, 4th Gen 12/24/17 07:41 WBC RBC Hgb Hct MCV MCH MCHC RDW Plt Count MPV Gran % Lymph % (Auto) [place] % (Auto) Eos % (Auto) Baso % (Auto) Gran # Lymph # (Auto) [place] # (Auto) Eos # (Auto) Baso # (Auto) Sodium Potassium Chloride Carbon Dioxide Anion Gap BUN Creatinine Est GFR ( Amer) Est GFR (Non-Af Amer) POC Glucose (mg/dL) 132 H Random Glucose Hemoglobin A1c Calcium Phosphorus Magnesium Total Bilirubin Direct Bilirubin AST ALT Alkaline Phosphatase Total Protein Albumin Globulin Albumin/Globulin Ratio Amylase Lipase Free T3 pg/mL Hepatitis A IgM Ab Hep Bs Antigen Hep B Core IgM Ab Hepatitis C Antibody HIV 1&2 Ag/Ab, 4th Gen Assessment & Plan - Assessment and Plan (Free Text) Assessment: 67 year old male PMHx HTN, DM, pancreatitis with 1) venous stasis dermatitis 2) tinea pedis Plan: Patient seen and evaluated with attending, Dr. Felix Afebrile, WBC 8.5 Bilateral venous duplex reviewed: negative for DVT Bilateral arterial duplex reviewed: BERNARDINO/PVR WNL Advised patient to continue compression stockings, remove when sleeping Lotrimin and Lac-Hydrin ordered for BID application to bilateral LE Stable per podiatry standpoint Will continue to follow while in house
[2017-12-24] MEDS ORDERED: Ammonium Lactate 12% Lotion (225 g) EXT SCH (11:06)
[2017-12-24] MEDS ORDERED: Clotrimazole 1% Cream(30 gm) TOP SCH (11:06)
--- NOTE | 2017-12-25 02:39 | CARD ---
APPROVED REPORT EKG Measurement Heart [id number] <Conclusion> Sinus rhythm with marked sinus arrhythmia Otherwise normal ECG
--- NOTE | 2017-12-25 20:46 | DS ---
SUBJECTIVE: Patient is seen in room 377, bed 1. The patient states that his abdominal pain, chest pain has completely resolved. The patient denies any chest pain. OBJECTIVE: VITAL SIGNS: T-max 97 degrees. Telemetry shows sinus rhythm. The patient is in sinus rhythm; heart rate 72, 74, 84; blood pressure 134/89, 147/88, 134/89; respirations 20; O2 sat 99%-98%. HEENT: Head: Normocephalic, atraumatic. Clever conjunctivae. Anicteric sclerae. No oropharyngeal lesion. NECK: No neck rigidity. CHEST: Kyphosis. LUNGS: Shows no rales, crackles or wheezing. CARDIOVASCULAR: S1, S2, regular rhythm. No audible murmur, gallop or rub at this time. ABDOMEN: Soft, protuberant. Positive mild epigastric tenderness. No guarding. No rigidity. No rebound tenderness. No periumbilical tenderness. No hepatosplenomegaly. GENITALIA: Male. RECTAL: Deferred. EXTREMITIES: Chronic skin changes of the lower extremity. No pitting edema, no calf tenderness, no Homans sign. NEUROLOGIC: The patient is alert, awake, oriented x3. Cranial nerves II-XII intact. Gait examination is independent. VASCULAR: Palpable pulses. MUSCULOSKELETAL: Shows a body mass index of 39. DIAGNOSTIC DATA: 12/24/2017, WBC 8.5, hemoglobin/hematocrit 17.3 and 49.6, platelets 125, granulocyte 71% segs. Sodium 139; potassium 4.4; chloride 101; CO2 of 25; anion gap 18; BUN 16; creatinine 0.8; GFR greater than 60; glucose 173, 132, 146, 106, 157; calcium 9.1; phosphorus 3.8; magnesium 2.0. LFTs are normal. Lipase is down to 309. Urine drug screen noted. Hepatitis A, B, C serologies, HIV, influenza negative. The patient's flow cytometry was negative. Echocardiogram was noted. Ejection fraction 56% and grade 1 abnormal relaxation pattern. EKG from today shows sinus rhythm, sinus arrhythmia. The patient seen by Podiatry. The patient seen by Cardiology and Gastroenterology. Their recommendations noted. DIAGNOSES: 1. Chest pain, etiology undetermined. 2. Abdominal pain. 3. Questionable diabetic gastroparesis with gastritis. 4. Hypertension. 5. Erythrocytosis. 6. Granulocytosis. 7. Lqa-ewvohtc-wesegwdre diabetes mellitus with hemoglobin A1c of 7.9. 8. Questionable pancreatitis with elevated lipase. 9. Hypertriglyceridemia, hypercholesteremia. 10. Proteinuria, microscopic hematuria, bacteriuria. 11. Urine drug screen positive for cannabinoids. 12. Hepatic steatosis and fatty infiltration of the liver with hypoechoic area in the left lobe of the liver with a possible focal sparing of the fatty infiltration. 13. Left ventricular ejection fraction of 56%. 14. Mild concentric left ventricular hypertrophy. 15. Grade 1 abnormal relaxation pattern. 16. Moderately thickened aortic valve. 17. Mildly thickened mitral valve. 18. Obesity with elevated body mass index of 39. 19. Bilateral lower extremity venous stasis dermatitis and tenia pedis. PLAN: At this time, the patient has been cleared by all subspecialty for discharge. The patient will be discharged home. DISCHARGE MEDICATIONS: The patient is to resume aspirin 81 mg daily, Elavil 10 mg at bedtime, Prozac 40 mg daily, Invokana 300 mg daily, Lipitor 20 mg daily, Protonix 40 mg once or twice a day, quinapril 20 mg daily. In addition, the patient was given Lac-Hydrin lotion 12% lotion to the feet twice a day and leg twice a day. Lotrimin 1% cream twice a day to both feet. The patient is to be discharged home. The patient is to follow up with Dr. Strange, Dr. Yan and Dr. Fernández within 1 week and schedule outpatient stress test with Dr. Yan. The patient was advised weight loss. The patient is advised to follow up with Dr. Dustin Yan on 12/26/2017 for outpatient stress testing. During this hospitalization, patient was extensively explained about the details of his medical condition, diagnosis, diagnostic test results. The patient was also counseled about cessation of recreational activities. Time spent in the entire discharge process more than 45 minutes. Dictated and electronically signed, not read. Nic Strange MD
== END 2017-12-24 12:42 | disposition home or self-care (01) ==
LOC: ED 14:52 → UNDOADMIN 18:28 → ERH 18:28 → INTOOBSV 18:30 → ERH 18:30 → 3RSO 21:22
PROVIDERS: ADMIT Internal Medicine; ATTEND Internal Medicine
DX: R07.9 Chest pain, unspecified (principal); E78.1 Pure hyperglyceridemia; E78.00 Pure hypercholesterolemia, unspecified; K76.0 Fatty (change of) liver, not elsewhere classified; Z68.39 Body mass index [BMI] 39.0-39.9, adult; E66.9 Obesity, unspecified; I87.2 Venous insufficiency (chronic) (peripheral); E11.40 Type 2 diabetes mellitus with diabetic neuropathy, unspecified; F12.90 Cannabis use, unspecified, uncomplicated; M47.816 Spondylosis without myelopathy or radiculopathy, lumbar region; B35.3 Tinea pedis; E11.65 Type 2 diabetes mellitus with hyperglycemia; G47.30 Sleep apnea, unspecified; N20.1 Calculus of ureter; D75.1 Secondary polycythemia; I10 Essential (primary) hypertension; M16.10 Unilateral primary osteoarthritis, unspecified hip; Z87.891 Personal history of nicotine dependence; Z98.1 Arthrodesis status
CPT/HCPCS: 36415; 71045; 74177; 76705; 80053; 80061; 80074; 80320; 80324; 80345; 80346; 80349; 80353; 80358; 80361; 81001; 82150; 82248; 82550; 82948; 83036; 83605; 83615; 83690; 83735; 83880; 83992; 84100; 84439; 84443; 84481; 84484; 85025; 85610; 85730; 87070; 87389; 87804; 93005; 93306; 93923; 93970; 96374; 97116; 97161; 97530; 99285; C9113; G0378; G8978; G8979; G8980; J1650; J2765; J7040; Q9966; Q9967